=== PATIENT | female | born 1960 | race Caucasian/White ===

== ENCOUNTER 2017-10-14 00:01 | Inpatient (IN) | payer BC ==
[~2017-10-14] VITALS: Ht 177.8 cm; Wt 98.3 kg
[2017-10-14 03:25] VITALS: BP 155/101
[2017-10-14] MEDS ORDERED: TIOT4MIS5 ENDO (04:50)
[2017-10-14] MEDS ORDERED: MONT4TAB5 PO (04:50)
[2017-10-14] MEDS ORDERED: FLUT1DIS IH (04:50)
[2017-10-14] MEDS ORDERED: LEVO125T PO (04:50)
[2017-10-14] MEDS ORDERED: ATOR10TA9 PO (04:50)
[2017-10-14] MEDS ORDERED: CELE200C PO (04:50)
[2017-10-14] MEDS ORDERED: TRAM50TA2 PO (04:50)
[2017-10-14] MEDS ORDERED: WARF4TAB PO (04:50)
[2017-10-14] MEDS ORDERED: GABA400C PO (04:50)
[2017-10-14] MEDS ORDERED: BISACODYL 10 MG SUPP PR PRN (05:00)
[2017-10-14] MEDS ORDERED: PROMETHAZINE 25 MG/ML, 1ML IM PRN (05:00)
[2017-10-14] MEDS ORDERED: DOCUSATE 100 MG CAPSULE PO PRN (05:00)
[2017-10-14] MEDS ORDERED: POLYETHYLENE GLYCOL 17 GM PACKET PO PRN (05:00)
[2017-10-14] MEDS ORDERED: ONDANSETRON 2MG/ML, 2ML IVPush PRN (05:00)
[2017-10-14] MEDS ORDERED: ENALAPRILAT 1.25 MG/ML, 2ML IVPush PRN (05:00)
[2017-10-14] MEDS ORDERED: hydrALAzine 20 MG/ML, 1ML IVPush PRN (05:00)
[2017-10-14] MEDS ORDERED: ONDANSETRON ODT 4 MG PO PRN (05:00)
[2017-10-14] MEDS ORDERED: ACETAMINOPHEN 325 MG TABLET PO PRN (05:00)
[2017-10-14] MEDS ORDERED: LABETALOL 5MG/ML, 20ML IVPush PRN (05:00)
[2017-10-14] MEDS ORDERED: OXYcodone IR 5MG TABLET PO PRN (05:00)
[2017-10-14] MEDS ORDERED: NITROGLYCERIN 0.4 MG BOTTLE (25 TABS) SL PRN (05:00)
[2017-10-14] MEDS: morphine SULFATE 10 MG/ML, 1ML IVPush PRN ×2 (05:23→08:54)
[2017-10-14] MEDS ORDERED: MAGNESIUM SULFATE PMX 2GM/50ML 50 ML IV ONE (05:30)
[2017-10-14] MEDS: ASPIRIN 325 MG TABLET EC PO SCH (05:33)
[2017-10-14] MEDS: LEVOTHYROXINE 125 MCG TABLET PO SCH (05:33)
[2017-10-14] MEDS: FUROSEMIDE 20 MG/2 ML IV SCH ×2 (05:33→16:58)
[2017-10-14 07:06] VITALS: BP 154/94
[2017-10-14 08:41] LABS: BASOPHILS # (AUTO) 0.04 x10^3/uL (0-0.1); BASOPHILS % (AUTO) 0 % (0-1); EOSINOPHILS # (AUTO) 0.23 x10^3/uL (0-0.4); EOSINOPHILS % (AUTO) 2 % (1-7); LYMPHOCYTES # (AUTO) 1.09 x10^3/uL (1-3.4); LYMPHOCYTES % (AUTO) 11 % (22-44); MD NO; MEAN CORPUSCULAR HEMOGLOBIN 31.3 pg (27.0-34.8); MEAN CORPUSCULAR HGB CONC 34.1 g/dL (32.4-35.8); MEAN CORPUSCULAR VOLUME 91.8 fL (80-100); MEAN PLATELET VOLUME 6.8 fL (7.4-10.4); MONOCYTES # (AUTO) 0.77 x10^3/uL (0.2-0.8); MONOCYTES % (AUTO) 8 % (2-9); NEUTROPHILS # (AUTO) 7.74 x10^3/uL (1.8-6.8); NEUTROPHILS % (AUTO) 79 % (42-75); PLATELET COUNT 232 x10^3/uL (130-400); RED BLOOD COUNT 5.03 x10^6/uL (3.82-5.3); RED CELL DISTRIBUTION WIDTH 13.3 % (9.6-15.2)
[2017-10-14 08:45] LABS: INTERNATIONAL NORMALIZED RATIO 2.09 (0.93-1.1); PROTHROMBIN TIME 21.2 Seconds (9.6-11.5)
[2017-10-14 08:47] VITALS: BP 155/94
[2017-10-14 08:48] LABS: ALANINE AMINOTRANSFERASE 63 U/L (12-78); ALBUMIN 3.9 g/dL (3.4-5.0); ANION GAP 9 mmol/L (5-15); CALCIUM 8.8 mg/dL (8.5-10.1); CHLORIDE 107 mmol/L (98-107); CREATININE 0.85 mg/dL (0.55-1.02)
[2017-10-14] MEDS: GABAPENTIN 400 MG CAPSULE PO SCH (08:58)
[2017-10-14 08:59] LABS: ALKALINE PHOSPHATASE 99 U/L (45-117); FREE T4 (FREE THYROXINE) 1.18 ng/dL (0.76-1.46); TOTAL PROTEIN 7.8 g/dL (6.4-8.2)
[2017-10-14] MEDS: MONTELUKAST 4 MG TAB.CHEW PO SCH (09:00)
[2017-10-14] MEDS: FLUTICASONE/VILANTEROL 200-25MCG/INH INH SCH (09:00)
[2017-10-14 09:01] LABS: HEMOGLOBIN A1C 5.2 % (4.2-6.3)
[2017-10-14] MEDS: SODIUM CHLORIDE 0.9% 100 ML IV SCH ×2 (10:00→10:45)
[2017-10-14 10:21] LABS: MICROSCOPIC AUTO
[2017-10-14 10:23] LABS: CULTURE INDICATED? YES
[2017-10-14 10:23] LABS: CHOL/HDL RATIO 3.1; LDL/HDL RATIO 1.8 (0.5-3.0)
[2017-10-14] MEDS ORDERED: VERAPAMIL 2.5 MG/ML, 2ML ONE (11:12)
[2017-10-14] MEDS ORDERED: MIDAZOLAM 1 MG/ML, 2ML ONE ×2 (11:12→11:38)
[2017-10-14] MEDS ORDERED: DIPHENHYDRAMINE 50 MG/ML, 1ML ONE (11:12)
[2017-10-14] MEDS ORDERED: FENTANYL PF 100 MCG/2ML ONE (11:12)
[2017-10-14 12:20] VITALS: BP 138/79
[2017-10-14] MEDS: METOPROLOL SUCCINATE 25 MG TAB.ER.24H PO SCH (12:27)
[2017-10-14] MEDS: LISINOPRIL 5 MG TABLET PO SCH (12:30)
[2017-10-14 16:55] VITALS: BP 150/95
[2017-10-14] MEDS ORDERED: WARFARIN 2.5 MG TABLET PO-COUM ONE (18:00)
[2017-10-14] MEDS ORDERED: WARFARIN 2 MG TABLET PO-COUM ONE (18:00)
[2017-10-14 20:00] VITALS: BP 118/78
[2017-10-14] MEDS: ATORVASTATIN 40 MG TABLET PO SCH (20:35)
[2017-10-14] MEDS ORDERED: ATORVASTATIN 20 MG TABLET PO SCH (21:00)
[2017-10-14] MEDS ORDERED: ALBUTEROL SULFATE 2.5 MG/3 ML NPPB PRN (21:00)
[2017-10-15 03:40] VITALS: BP 116/57
[2017-10-15 05:08] LABS: BASOPHILS % (AUTO) 0 % (0-1); EOSINOPHILS # (AUTO) 0.52 x10^3/uL (0-0.4); EOSINOPHILS % (AUTO) 5 % (1-7); LYMPHOCYTES % (AUTO) 13 % (22-44); MD NO; MEAN CORPUSCULAR HGB CONC 34.6 g/dL (32.4-35.8); MEAN CORPUSCULAR VOLUME 92.5 fL (80-100); MEAN PLATELET VOLUME 7.2 fL (7.4-10.4); MONOCYTES # (AUTO) 0.92 x10^3/uL (0.2-0.8); MONOCYTES % (AUTO) 9 % (2-9); NEUTROPHILS # (AUTO) 7.82 x10^3/uL (1.8-6.8); NEUTROPHILS % (AUTO) 73 % (42-75); PLATELET COUNT 203 x10^3/uL (130-400); RED BLOOD COUNT 4.87 x10^6/uL (3.82-5.3); RED CELL DISTRIBUTION WIDTH 13.5 % (9.6-15.2)
[2017-10-15 05:12] VITALS: BP 129/87
[2017-10-15] MEDS: ASPIRIN 325 MG TABLET EC PO SCH (05:14)
[2017-10-15] MEDS: LEVOTHYROXINE 125 MCG TABLET PO SCH (05:14)
[2017-10-15] MEDS: METOPROLOL SUCCINATE 25 MG TAB.ER.24H PO SCH (05:14)
[2017-10-15] MEDS: FUROSEMIDE 20 MG/2 ML IV SCH ×2 (05:14→17:05)
[2017-10-15 05:15] LABS: INTERNATIONAL NORMALIZED RATIO 1.57 (0.93-1.1)
[2017-10-15 05:20] LABS: CHLORIDE 105 mmol/L (98-107)
[2017-10-15 05:30] LABS: ALANINE AMINOTRANSFERASE 56 U/L (12-78); ALBUMIN 3.6 g/dL (3.4-5.0); ALKALINE PHOSPHATASE 81 U/L (45-117); ANION GAP 6 mmol/L (5-15); BILIRUBIN,TOTAL 1.2 mg/dL (0.2-1.0); CALCIUM 8.6 mg/dL (8.5-10.1); CREATININE 1.01 mg/dL (0.55-1.02); TOTAL PROTEIN 7.5 g/dL (6.4-8.2)
[2017-10-15 09:06] VITALS: BP 107/70
[2017-10-15] MEDS: FLUTICASONE/VILANTEROL 200-25MCG/INH INH SCH (09:18)
[2017-10-15] MEDS: MONTELUKAST 4 MG TAB.CHEW PO SCH (09:18)
[2017-10-15] MEDS: LISINOPRIL 5 MG TABLET PO SCH (09:18)
[2017-10-15] MEDS: GABAPENTIN 400 MG CAPSULE PO SCH (09:18)
[2017-10-15] MEDS: CLOPIDOGREL 75 MG TABLET PO SCH (10:40)
[2017-10-15] MEDS ORDERED: CLOP75TA PO (11:20)
[2017-10-15] MEDS ORDERED: LISI5TAB7 PO (11:20)
[2017-10-15] MEDS ORDERED: ATOR40TA78 PO (11:20)
[2017-10-15] MEDS ORDERED: METO25TA91 PO (11:20)
[2017-10-15 14:50] VITALS: BP 99/69
[2017-10-15] MEDS ORDERED: WARFARIN 7.5 MG TABLET PO-COUM ONE (18:00)
[2017-10-15 19:47] VITALS: BP 100/66
[2017-10-15] MEDS: ATORVASTATIN 40 MG TABLET PO SCH (22:29)
[2017-10-16 03:59] VITALS: BP 91/61
[2017-10-16 05:50] LABS: INTERNATIONAL NORMALIZED RATIO 1.24 (0.93-1.1); PROTHROMBIN TIME 12.7 Seconds (9.6-11.5)
[2017-10-16] MEDS: FUROSEMIDE 20 MG/2 ML IV SCH (05:57)
[2017-10-16] MEDS: LEVOTHYROXINE 125 MCG TABLET PO SCH (05:57)
[2017-10-16] MEDS: ASPIRIN 325 MG TABLET EC PO SCH (05:57)
[2017-10-16] MEDS: METOPROLOL SUCCINATE 25 MG TAB.ER.24H PO SCH (05:57)
[2017-10-16 06:55] LABS: BASOPHILS # (AUTO) 0.04 x10^3/uL (0-0.1); BASOPHILS % (AUTO) 0 % (0-1); EOSINOPHILS # (AUTO) 0.27 x10^3/uL (0-0.4); EOSINOPHILS % (AUTO) 2 % (1-7); LYMPHOCYTES # (AUTO) 1.79 x10^3/uL (1-3.4); LYMPHOCYTES % (AUTO) 13 % (22-44); MD NO; MEAN CORPUSCULAR HEMOGLOBIN 32.2 pg (27.0-34.8); MEAN CORPUSCULAR HGB CONC 34.7 g/dL (32.4-35.8); MEAN CORPUSCULAR VOLUME 92.6 fL (80-100); MEAN PLATELET VOLUME 7.4 fL (7.4-10.4); MONOCYTES % (AUTO) 11 % (2-9); NEUTROPHILS % (AUTO) 74 % (42-75); PLATELET COUNT 201 x10^3/uL (130-400); RED BLOOD COUNT 4.92 x10^6/uL (3.82-5.3); RED CELL DISTRIBUTION WIDTH 13.4 % (9.6-15.2)
[2017-10-16 07:04] LABS: ALBUMIN 3.8 g/dL (3.4-5.0); ANION GAP 8 mmol/L (5-15); CALCIUM 8.7 mg/dL (8.5-10.1); CHLORIDE 101 mmol/L (98-107); CREATININE 1.24 mg/dL (0.55-1.02)
[2017-10-16 08:46] VITALS: BP 111/79
[2017-10-16] MEDS: LISINOPRIL 5 MG TABLET PO SCH (09:15)
[2017-10-16] MEDS: GABAPENTIN 400 MG CAPSULE PO SCH (09:15)
[2017-10-16] MEDS: CLOPIDOGREL 75 MG TABLET PO SCH (09:16)
[2017-10-16] MEDS: MONTELUKAST 4 MG TAB.CHEW PO SCH (09:16)
[2017-10-16] MEDS: FLUTICASONE/VILANTEROL 200-25MCG/INH INH SCH (09:18)
[2017-10-16] MEDS ORDERED: FURO-93 PO (10:49)
[2017-10-16] MEDS ORDERED: POTA10CA PO (10:49)
[2017-10-16] MEDS ORDERED: ASPI-515 PO (10:53)
[2017-10-16] MEDS ORDERED: WARFARIN 7.5 MG TABLET PO-COUM ONE (18:00)
== END 2017-10-16 12:23 | disposition home or self-care (01) | DRG 280 ==
LOC: 5SO 02:41 → DCLOUNGE 10-16 12:00
PROVIDERS: ADMIT Internal Medicine; ATTEND Internal Medicine
PROC: 4A023N7 Measurement of Cardiac Sampling and Pressure, Left Heart, Percutaneous Approach (ICD-10-PCS; principal; 2017-10-14)
PROC: B2111ZZ Fluoroscopy of Multiple Coronary Arteries using Low Osmolar Contrast (ICD-10-PCS; 2017-10-14)
PROC: B2151ZZ Fluoroscopy of Left Heart using Low Osmolar Contrast (ICD-10-PCS; 2017-10-14)
DX: I21.4 Non-ST elevation (NSTEMI) myocardial infarction (principal); I50.33 Acute on chronic diastolic (congestive) heart failure; I27.82 Chronic pulmonary embolism; R17 Unspecified jaundice; I34.1 Nonrheumatic mitral (valve) prolapse; J44.9 Chronic obstructive pulmonary disease, unspecified; Z96.652 Presence of left artificial knee joint; E03.9 Hypothyroidism, unspecified; E78.5 Hyperlipidemia, unspecified; E83.42 Hypomagnesemia; I11.0 Hypertensive heart disease with heart failure; Z88.8 Allergy status to other drugs, medicaments and biological substances; Z79.01 Long term (current) use of anticoagulants; Z79.02 Long term (current) use of antithrombotics/antiplatelets; Z79.82 Long term (current) use of aspirin; Z87.891 Personal history of nicotine dependence
CPT/HCPCS: 36415; 76700; 80048; 80053; 80061; 81001; 82040; 83036; 83735; 84100; 84439; 84443; 84484; 85025; 85610; 87086; 93005; 93306; 93458; 99156; 99285; C1769; C1894; J2250; J3010; J1200; J1940; J2270; J3475; Q9967